=== PATIENT | female | born 1965 | race Two or more races ===

== ENCOUNTER → 2016-06-05 | Outpatient (CLI) | payer BC, OTHER ==
--- NOTE | 2016-06-05 14:03 | US ---
ULTRASOUND EXAMINATION OF the left lower extremity WITH DOPPLER HISTORY: Pain FINDINGS: Examination of the left leg was performed from the groin to the calf region. All visualized segment s including common femoral, proximal greater saphenous, superficial femoral, popliteal and calf vein s appear patent with good compressibility and augmentation. There is no evidence of deep vein throm bosis. IMPRESSION: No evidence of a DVT.
== END ==
LOC: MW.US 12:57
PROVIDERS: ATTEND Family Medicine
DX: R52 Pain, unspecified (principal); R60.9 Edema, unspecified; I82.402 Acute embolism and thrombosis of unspecified deep veins of left lower extremity
CPT/HCPCS: 93971-26-LT; 93971-LT

== ENCOUNTER 2018-03-10 15:26 | Emergency (ER) | payer BC, OTHER ==
[2018-03-10] MEDS ORDERED: Lidocaine 2% Viscous Solution 15 ML Cup PO ONE (15:35)
[2018-03-10] MEDS ORDERED: Benzocaine 20% Topical Spray UD MUCMEM ONE (15:35)
--- NOTE | 2018-03-10 15:41 | EDM.PDOC ---
ED HPI GENERAL MEDICAL PROBLEM - General Chief Complaint: ENT Problem Stated Complaint: ORAL PAIN Time Seen by Provider: 03/10/18 15:29 Source of Information: Reports: Patient History Limitations: Reports: No Limitations - History of Present Illness INITIAL COMMENTS - FREE TEXT/NARRATIVE: HISTORY AND PHYSICAL: History of present illness: Patient is a 53-year-old female who presents to the emergency room with complaints of left low jaw swelling. She states that she was seen by the dentist earlier this week and was placed on clindamycin for a possible abscess. She does not have any teeth along the lower left jaw line #20- #17. She did receive an x-ray at that time and they ruled out an abscess. She continued with the clindamycin but now has increased pain, sensation of some numbness and tingling to that area and swelling along the left low jaw line. She tried to get in with the maxillofacial surgeon who states that they are unable to get in for over a month. She denies any fever, chills, chest pain, shortness of breath or cough. Denies any abdominal pain, nausea, vomiting, diarrhea, constipation or dysuria. She has been able to eat and drink appropriately. Review of systems: As per history of present illness and below otherwise all systems reviewed and negative. Past medical history: As per history of present illness and as reviewed below otherwise noncontributory. Surgical history: As per history of present illness and as reviewed below otherwise noncontributory. Social history: See social history for further information Family history: As per history of present illness and as reviewed below otherwise noncontributory. Physical exam: General: HEENT: Atraumatic, normocephalic, pupils equal and reactive bilaterally, negative for conjunctival pallor or scleral icterus, mucous membranes moist, TMs normal bilaterally, throat clear, neck supple, nontender, trachea midline. No drooling or trismus noted. No meningeal signs. No hot potato voice noted. No temporal tenderness with palpation. No tenderness to the mastiod bone. Lungs: Clear to auscultation, breath sounds equal bilaterally, chest nontender. Heart: S1S2, regular rate and rhythm without overt murmur Abdomen: Soft, nondistended, nontender. Negative for masses or hepatosplenomegaly. Negative for costovertebral tenderness. Pelvis: Stable nontender. Genitourinary: Deferred. Rectal: Deferred. Skin: Intact, warm, dry. No lesions or rashes noted. Extremities: Atraumatic, negative for cords or calf pain. Neurovascular unremarkable. Neuro: Awake, alert, oriented. Cranial nerves II through XII unremarkable. Cerebellum unremarkable. Motor and sensory unremarkable throughout. Exam nonfocal. Notes: Lab work is unremarkable. CT shows Left perimandibular soft tissue edema, nonspecific. No regional fluid collection seen. No tonsillar or peritonsillar collection. Atrophic changes in the bilateral parotid and submandibular glands. Multiple small soft tissue nodules in the bilateral parotids could represent residual glandular tissue. Left maxillary sinus disease with a mucosal retention cyst or polyp. Encourage patient to continue her clindamycin. We'll give her a Medrol Dosepak and tramadol for home use. Would like her to follow-up with her dentist as she already has arranged. We reviewed signs and symptoms that would prompt her to return to the emergency room. Diagnostics: CBC, CMP, soft tissue neck Therapeutics: Toradol Prescription: Medrol Dose Moo Tramadol Impression: Jaw pain Plan: 1. Please continue to take the antibiotic as prescribed. Medrol dosepak as directed 2. Tylenol and/or ibuprofen as needed for pain management. "Tooth Balls" have been given to you; apply along the gumline every 2-3 hours as needed. Do not swallow these; external use only. Tramadol as needed for moderate to severe pain. This medication may cause drowsiness a do not take it while driving or needing to be functioning outside of the house. 3. Follow-up with a dentist for definitive care. Return to the ED as needed and as discussed. Definitive disposition and diagnosis as appropriate pending reevaluation and review of above. Left lower dental Pain Score (Numeric/FACES): 9 - Related Data Allergies Allergy/AdvReac Type Severity Reaction Status Date / Time cephalexin [From Keflex] Allergy Tachycardia Verified 03/10/18 15:44 erythromycin base Allergy Tachycardia Verified 03/10/18 15:44 sulfamethoxazole Allergy Tachycardia Verified 03/10/18 15:44 [From Bactrim] tetracycline Allergy Tachycardia Verified 03/10/18 15:44 trimethoprim [From Bactrim] Allergy Tachycardia Verified 03/10/18 15:44 Home Meds: Home Meds Clindamycin HCl 150 mg PO Q8HR 01/17/19 [History] ED ROS ENT - Review of Systems Review Of Systems: ROS reveals no pertinent complaints other than HPI. ED EXAM, ENT - Physical Exam Exam: See Below (see dictation) Course - Vital Signs Last Recorded V/S: Last Vital Signs Temp 97.1 F 03/10/18 15:44 Pulse 81 03/10/18 15:44 Resp 18 03/10/18 15:44 BP 111/67 03/10/18 15:44 Pulse Ox 94 L 03/10/18 15:44 - Orders/Labs/Meds Orders: Active Orders 24 hr Category Date Time Status Soft Tissue Neck w Cont [CT] Stat Exams 03/10/18 15:47 Ordered Ketorolac [Toradol] Med 03/10/18 17:27 Once 30 mg IVPUSH ONETIME ONE Labs: Laboratory Tests 03/10/18 03/10/18 Range/Units 15:58 15:58 WBC 6.50 (4.0-11.0) K/uL RBC 4.03 L (4.30-5.90) M/uL Hgb 12.6 (12.0-16.0) g/dL Hct 36.9 (36.0-46.0) % MCV 91.6 (80.0-98.0) fL MCH 31.3 (27.0-32.0) pg MCHC 34.1 (31.0-37.0) g/dL RDW Std Deviation 44.2 (28.0-62.0) fl RDW Coeff of Bogdan 13 (11.0-15.0) % Plt Count 257 (150-400) K/uL MPV 9.70 (7.40-12.00) fL Neut % (Auto) 64.6 (48.0-80.0) % Lymph % (Auto) 24.0 (16.0-40.0) % Toole % (Auto) 9.7 (0.0-15.0) % Eos % (Auto) 1.4 (0.0-7.0) % Baso % (Auto) 0.3 (0.0-1.5) % Neut # (Auto) 4.2 (1.4-5.7) K/uL Lymph # (Auto) 1.6 (0.6-2.4) K/uL Toole # (Auto) 0.6 (0.0-0.8) K/uL Eos # (Auto) 0.1 (0.0-0.7) K/uL Baso # (Auto) 0.0 (0.0-0.1) K/uL Nucleated RBC % 0.0 /100WBC Nucleated RBCs # 0 K/uL Sodium 139 (136-145) mmol/L Potassium 4.1 (3.5-5.1) mmol/L Chloride 107 (98-107) mmol/L Carbon Dioxide 23.1 (21.0-32.0) mmol/L BUN 12 (7.0-18.0) mg/dL Creatinine 0.8 (0.6-1.0) mg/dL Est Cr Clr Drug Dosing 80.15 mL/min Estimated GFR (MDRD) > 60.0 ml/min Glucose 108 H (74-106) mg/dL Calcium 9.4 (8.5-10.1) mg/dL Total Bilirubin 0.4 (0.2-1.0) mg/dL AST 31 (15-37) IU/L ALT 43 (14-63) IU/L Alkaline Phosphatase 101 (46-116) U/L Total Protein 8.4 H (6.4-8.2) g/dL Albumin 3.3 L (3.4-5.0) g/dL Globulin 5.1 H (2.6-4.0) g/dL Albumin/Globulin Ratio 0.7 L (0.9-1.6) Meds: Medications Discontinued Medications Generic Name Dose Route Start Last Admin Trade Name Freq PRN Reason Stop Dose Admin Benzocaine 2 each 03/10/18 15:35 03/10/18 16:11 Hurricaine One 20% MUCMEM 03/10/18 15:36 2 each ONETIME ONE Administration Iopamidol 80 ml 03/10/18 16:44 03/10/18 16:45 Isovue Multipack-370 (76%) IVPUSH 03/10/18 16:45 80 ml ONETIME STA Administration Lidocaine HCl 15 ml 03/10/18 15:35 03/10/18 16:11 Xylocaine 2% Viscous PO 03/10/18 15:36 15 ml ONETIME ONE Administration Departure - Departure Time of Disposition: 17:40 Disposition: Home, Self-Care 01 Clinical Impression: Pain in lower jaw - Discharge Information Referrals: PCP,None [Primary Care Provider] - Forms: ED Department Discharge Additional Instructions: The following information is given to patients seen in the emergency department who are being discharged to home. This information is to outline your options for follow-up care. We provide all patients seen in our emergency department with a follow-up referral. The need for follow-up, as well as the timing and circumstances, are variable depending upon the specifics of your emergency department visit. If you don't have a primary care physician on staff, we will provide you with a referral. We always advise you to contact your personal physician following an emergency department visit to inform them of the circumstance of the visit and for follow-up with them and/or the need for any referrals to a consulting specialist. The emergency department will also refer you to a specialist when appropriate. This referral assures that you have the opportunity for follow-up care with a specialist. All of these measure are taken in an effort to provide you with optimal care, which includes your follow-up. Under all circumstances we always encourage you to contact your private physician who remains a resource for coordinating your care. When calling for follow-up care, please make the office aware that this follow-up is from your recent emergency room visit. If for any reason you are refused follow-up, please contact the [facility] Emergency Department at and asked to speak to the emergency department charge nurse. [facility] [address] [place] [id number] [place] [address] 1. Please continue to take the antibiotic as prescribed. Medrol dosepak as directed 2. Tylenol and/or ibuprofen as needed for pain management. "Tooth Balls" have been given to you; apply along the gumline every 2-3 hours as needed. Do not swallow these; external use only. Tramadol as needed for moderate to severe pain. This medication may cause drowsiness a do not take it while driving or needing to be functioning outside of the house. 3. Follow-up with a dentist for definitive care. Return to the ED as needed and as discussed. - My Orders Last 24 Hours: My Active Orders 03/10/18 15:47 Soft Tissue Neck w Cont [CT] Stat 03/10/18 17:27 Ketorolac [Toradol] 30 mg IVPUSH ONETIME ONE - Assessment/Plan Last 24 Hours: My Active Orders 03/10/18 15:47 Soft Tissue Neck w Cont [CT] Stat 03/10/18 17:27 Ketorolac [Toradol] 30 mg IVPUSH ONETIME ONE
[2018-03-10 16:29] LABS: CHLORIDE,CL 107 mmol/L (98-107); SODIUM,NA 139 mmol/L (136-145)
[2018-03-10] MEDS ORDERED: Iopamidol 755 MG/ML 500 ML Multipack Bottle IVPUSH STA (16:44)
[2018-03-10] MEDS ORDERED: Ketorolac 30 MG/ML SDV IVPUSH ONE (17:27)
--- NOTE | 2018-03-10 17:37 | CT ---
INDICATION: Left perimandibular swelling TECHNIQUE: CT soft tissue of the neck was acquired with IV contrast. 80 mL of Isovue 370 administered. COMPARISON: None available FINDINGS: There is left perimandibular subcutaneous edema. No regional loculated fluid collection is seen. The nasopharynx, oropharynx, hypopharynx and larynx are patent. 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 No tonsillar or peritonsillar collection is seen. There is partial atrophy of the bilateral parotid glands which contain multiple small soft tissue nodular densities which could be related to residual glandular tissue, as well as subcentimeter lymph nodes. There is fatty atrophy of the bilateral submandibular glands. There is a focus of ill-defined soft tissue density in the left aspect of the floor of mouth region on image 34 which could represent mild nonspecific focal edema or may be related to partial focal atrophy involving regional musculature. No discrete thyroid abnormality is seen. No abnormally enlarged cervical lymph nodes are seen. There is a left maxillary sinus mucosal retention cyst or polyp and adjacent mucosal thickening, and mild mucosal thickening in the anterior right ethmoid sinus. No suspicious or acute osseous abnormalities are seen. There is a prominent irregular fat attenuation area in the left suboccipital soft tissues compatible with a lipoma. IMPRESSION: Left perimandibular soft tissue edema, nonspecific. No regional fluid collection seen. No tonsillar or peritonsillar collection. Atrophic changes in the bilateral parotid and submandibular glands. Multiple small soft tissue nodules in the bilateral parotids could represent residual glandular tissue. Left maxillary sinus disease with a mucosal retention cyst or polyp. Dictated by Gaston Deal MD @ 03/10/2018 5:35:50 PM Please note that all CT scans at this facility use dose modulation, iterative reconstruction, and/or weight-based dosing when appropriate to reduce radiation dose to as low as reasonably achievable. Dictated by: Gaston Deal MD @ 03/10/2018 17:36:01 (Electronically Signed)
== END 2018-03-10 17:58 | disposition home or self-care (01) ==
LOC: MW.ED 15:26
DX: R68.84 Jaw pain (principal)
CPT/HCPCS: 36415; 70491; 80053; 85025; 96374; 99284; A9270; J1885; Q9967; 99283

== ENCOUNTER 2018-06-20 08:58 | Day surgery (SDC) | payer BC, OTHER ==
[~2018-06-20 08:58] MED LIST: Lactated Ringers 1,000 ML IV SCH
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
[2018-06-20] MEDS ORDERED: Lidocaine 2% 5 ML SDV ONE (10:51)
[2018-06-20] MEDS ORDERED: Midazolam 1 MG/ML 2 ML SDV ONE (10:51)
[2018-06-20] MEDS ORDERED: fentaNYL 100 MCG/2 ML SDV ONE (10:51)
[2018-06-20] MEDS ORDERED: Propofol 200 MG/20 ML SDV ONE ×2 (10:52→11:22)
[2018-06-20] MEDS ORDERED: Lactated Ringers 1,000 ML IV SCH (11:45)
--- NOTE | 2018-06-20 11:45 | PCM.OPNOTE ---
- General Post-Op/Procedure Note Date of Surgery/Procedure: 06/20/18 Operative Procedure(s): Colonoscopy Pre Op Diagnosis: Intermittent rectal bleeding Post-Op Diagnosis: No evidence of neoplasia Anesthesia Technique: MAC (ASA II) Primary Surgeon: Herman iKllian Condition: Good Free Text/Narrative:: DICTATION 424429 CPT CODE 91648
--- NOTE | 2018-06-20 12:34 | PCM48HPAN ---
Post Anesthesia Note - EVALUATION WITHIN 48HRS OF ANESTHETIC Vital Signs in Normal Range: Yes Patient Participated in Evaluation: Yes Respiratory Function Stable: Yes Airway Patent: Yes Cardiovascular Function Stable: Yes Hydration Status Stable: Yes Pain Control Satisfactory: Yes Nausea and Vomiting Control Satisfactory: Yes Mental Status Recovered: Yes Resp Rate: 15 - COMMENTS/OBSERVATIONS Free Text/Narrative:: no anesthesia problems
--- NOTE | 2018-06-22 08:27 | OR ---
SURGEON: Herman Killian M.D. DATE OF PROCEDURE: 06/20/2018 OPERATION PERFORMED: Colonoscopy. ANESTHESIA: MAC. ASA CLASSIFICATION: II. PREOPERATIVE DIAGNOSIS: Intermittent rectal bleeding. POSTOPERATIVE DIAGNOSIS: No evidence of neoplasia. DESCRIPTION OF PROCEDURE: The patient was taken to the endoscopy room and positioned on the endoscopy table in the left lateral decubitus position. Time-out was called for appropriate identification of the patient and procedure. Monitored anesthesia care was provided. The colonoscope was inserted into the rectum and advanced with moderate difficulty to the cecum. The cecum was identified by internal landmarks and external pressure. The colonoscope was retroflexed in the cecum to visualize the ascending colon from below, then straightened and slowly withdrawn. The prep was excellent. The cecum, ascending colon, hepatic flexure, transverse colon, splenic flexure, descending colon, sigmoid colon, and rectum were very well visualized. No tumors, polyps, diverticula, or angiodysplastic changes were noted anywhere in the lower gastrointestinal tract. Once the colonoscope was withdrawn to the rectum, it was retroflexed to visualize the anal orifice from above. Again, no tumors or polyps were seen and there were no acute hemorrhoidal changes. The colonoscope was then straightened, the rectum aspirated, and the colonoscope removed. The patient tolerated the procedure well and was taken to recovery room in satisfactory condition. GABI SPENCE /[id number]
== END 2018-06-20 12:35 | disposition home or self-care (01) ==
LOC: MW.SDS 08:58
PROVIDERS: ATTEND Surgery
DX: K92.1 Melena (principal); J30.9 Allergic rhinitis, unspecified; B35.3 Tinea pedis; Z88.1 Allergy status to other antibiotic agents; Z88.2 Allergy status to sulfonamides; Z91.030 Bee allergy status; Z87.891 Personal history of nicotine dependence
CPT/HCPCS: 45378; J2001; J2250; J2704; J3010; J7120

== ENCOUNTER 2019-07-20 06:53 | Day surgery (SDC) | payer BC, OTHER ==
[~2019-07-20 06:53] MED LIST changes: +Glycopyrrolate 0.2 MG/ML SDV ONE; +Ketorolac 30 MG/ML SDV ONE; +Lidocaine 2% 5 ML SDV ONE; +Midazolam 1 MG/ML 2 ML SDV ONE; +Ondansetron 4 MG/2 ML SDV ONE; +Propofol 200 MG/20 ML SDV ONE; +Rocuronium 100 MG/10 ML Syringe ONE; +Sodium Chloride 0.9% 10 ML SDV IV PRN; +Sodium Chloride 0.9% 10 ML Syringe FLUSH PRN; +Sodium Chloride 0.9% 2.5 ML Syringe FLUSH PRN; +Sugammadex Sodium 200 MG/2 ML VIAL ONE; +fentaNYL 250 MCG/5 ML SDV ONE
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
[2019-07-20] MEDS ORDERED: fentaNYL 100 MCG/2 ML SDV IVPUSH PRN (07:30)
[2019-07-20] MEDS ORDERED: Acetaminophen 1,000 MG in Premix Bag 1 BAG IV PRN (07:30)
[2019-07-20] MEDS ORDERED: Fluorescein 5 ML Vial ONE (08:21)
--- NOTE | 2019-07-20 08:44 | PCM.DCSUM1 ---
Discharge Summary - Hospital Course Diagnosis: Stroke: No - Discharge Data Discharge Date: 07/20/19 Discharge Disposition: Home, Self-Care 01 Condition: Good - Referral to Home Health Primary Care Physician: PCP None - Patient Instructions Diet: Usual Diet as Tolerated Activity: As Tolerated Driving: Do Not Drive Showering/Bathing: May Shower - Discharge Plan Home Medications: Home Meds EPINEPHrine [Epipen 2-Moo] 0.3 mg IM ASDIRECTED PRN 06/16/18 [History] SUMAtriptan [Sumatriptan] 20 mg INH ASDIRECTED PRN MDD 40 mg 06/16/18 [History] Clotrimazole [Antifungal Ringworm] 1 dose TOP BID PRN 07/18/19 [History] Fluticasone Propionate [Flonase Allergy Relief] 1 spray NASBOTH DAILY PRN [History] estradioL [Estradiol] 1 mg PO DAILY 07/20/19 [History] - Discharge Summary/Plan Comment DC Time >30 min.: Yes - General Info Date of Service: 07/20/19 Functional Status: Reports: Pain Controlled - Review of Systems General: Reports: No Symptoms HEENT: Reports: No Symptoms Pulmonary: Reports: No Symptoms Cardiovascular: Reports: No Symptoms Gastrointestinal: Reports: No Symptoms Genitourinary: Reports: No Symptoms Musculoskeletal: Reports: No Symptoms Skin: Reports: No Symptoms Neurological: Reports: No Symptoms Psychiatric: Reports: No Symptoms - Patient Data Vitals - Most Recent: Last Vital Signs Temp 36.0 C L 07/20/19 07:10 Pulse 67 07/20/19 07:10 Resp 16 07/20/19 07:10 BP 113/58 L 07/20/19 07:10 Pulse Ox 96 07/20/19 07:10 Weight - Most Recent: 85.729 kg Med Orders - Current: Current Medications Fentanyl (Sublimaze) 50 mcg IVPUSH Q5M PRN PRN Reason: Pain Lactated Ringer's (Ringers, Lactated) 1,000 mls @ 125 mls/hr IV ASDIRECTED GISELLE Last Admin: 07/20/19 07:43 Dose: 125 mls/hr Acetaminophen 1,000 mg/ Premix 100 mls @ 400 mls/hr IV Q6H PRN PRN Reason: Pain Sodium Chloride (Saline Flush) 10 ml FLUSH ASDIRECTED PRN PRN Reason: Keep Vein Open Sodium Chloride (Saline Flush) 2.5 ml FLUSH ASDIRECTED PRN PRN Reason: Keep Vein Open Sodium Chloride (Normal Saline) 10 ml IV ASDIRECTED PRN PRN Reason: IV Use Discontinued Medications Fentanyl (Sublimaze) Confirm Administered Dose 250 mcg .ROUTE .STK-MED ONE Stop: 07/20/19 06:48 Fluorescein Sodium (Ak-Fluor) Confirm Administered Dose 5 ml .ROUTE .STK-MED ONE Stop: 07/20/19 08:22 Glycopyrrolate (Robinul) Confirm Administered Dose 0.2 mg .ROUTE .STK-MED ONE Stop: 07/20/19 06:50 Ketorolac Tromethamine (Toradol) Confirm Administered Dose 30 mg .ROUTE .STK- MED ONE Stop: 07/20/19 06:50 Lidocaine (Xylocaine-Mpf 2%) Confirm Administered Dose 5 ml .ROUTE .STK-MED ONE Stop: 07/20/19 06:50 Midazolam HCl (Versed 1 Mg/Ml) Confirm Administered Dose 2 mg .ROUTE .STK-MED ONE Stop: 07/20/19 06:48 Ondansetron HCl (Zofran) Confirm Administered Dose 4 mg .ROUTE .STK-MED ONE Stop: 07/20/19 06:50 Propofol (Diprivan 20 Ml) Confirm Administered Dose 200 mg .ROUTE .STK-MED ONE Stop: 07/20/19 06:48 Rocuronium [place] (Zemuron) Confirm Administered Dose 100 mg .ROUTE .STK-MED ONE Stop: 07/20/19 06:50 Sugammadex Sodium ([place]) Confirm Administered Dose 200 mg .ROUTE .STK-MED ONE Stop: 07/20/19 06:47 - Exam General: Reports: Alert, Oriented HEENT: Reports: Pupils Equal, Pupils Reactive, EOMI, Mucous Membr. Moist/[place] Neck: Reports: Supple Lungs: Reports: Clear to Auscultation, Normal Respiratory Effort Cardiovascular: Reports: Regular Rate, Regular Rhythm GI/Abdominal Exam: Normal Bowel Sounds, Soft, Non-Tender, No Organomegaly, No Distention, No Abnormal Bruit, No Mass, Pelvis Stable (Female) Exam: Normal External Exam, Normal Speculum Exam, Normal Bimanual Exam Rectal (Female) Exam: Normal Exam, Normal Rectal Tone Back Exam: Reports: Normal Inspection, Full Range of Motion Extremities: Normal Inspection, Normal Range of Motion, Non-Tender, No Pedal Edema, Normal Capillary Refill Skin: Reports: Warm, Dry, Intact Wound/Incisions: Reports: Healing Well Neurological: Reports: No New Focal Deficit Psy/Mental Status: Reports: Alert, Normal Affect, Normal Mood
--- NOTE | 2019-07-20 09:06 | PCM.POSTAN ---
POST ANESTHESIA ASSESSMENT - MENTAL STATUS Mental Status: Alert, Oriented - VITAL SIGNS Vital Signs: Last Vital Signs Temp 36.2 C 07/20/19 08:46 Pulse 82 07/20/19 09:02 Resp 14 07/20/19 09:02 BP 110/64 07/20/19 09:02 Pulse Ox 96 07/20/19 09:02 - RESPIRATORY Respiratory Status: Respiratory Rate WNL, Airway Patent, O2 Saturation Stable - CARDIOVASCULAR CV Status: Pulse Rate WNL, Blood Pressure Stable - GASTROINTESTINAL GI Status: No Symptoms - PAIN Pain Score: 2 - POST OP HYDRATION Hydration Status: Adequate & Stable - OBSERVATIONS Free Text/Narrative:: No anesthesia problems
--- NOTE | 2019-07-20 10:24 | PCM48HPAN ---
Post Anesthesia Note - EVALUATION WITHIN 48HRS OF ANESTHETIC Vital Signs in Normal Range: Yes Patient Participated in Evaluation: Yes Respiratory Function Stable: Yes Airway Patent: Yes Cardiovascular Function Stable: Yes Hydration Status Stable: Yes Pain Control Satisfactory: Yes Nausea and Vomiting Control Satisfactory: Yes Mental Status Recovered: Yes Vital Signs: Last Vital Signs Temp 36.2 C 07/20/19 08:46 Pulse 82 07/20/19 09:02 Resp 14 07/20/19 09:02 BP 110/64 07/20/19 09:02 Pulse Ox 96 07/20/19 09:02 - COMMENTS/OBSERVATIONS Free Text/Narrative:: No anesthesia problems.
[2019-07-20] MEDS ORDERED: Acetaminophen/HYDROcodone 325-5 MG Tab PO ONE (10:51)
--- NOTE | 2019-07-20 12:38 | OR ---
SURGEON: Alfonso Mccarty MD DATE OF PROCEDURE: 07/20/2019 PREOPERATIVE DIAGNOSIS: Stress urinary incontinence. POSTOPERATIVE DIAGNOSIS: Stress urinary incontinence. OPERATION PERFORMED: Tension free Solyx TVT cystoscopy. PRIMARY SURGEON: Alfonso Mccarty MD. DRY CHAIN PULLER: OR tech. ANESTHESIA: General endotracheal intubation, Gary Conor Man and Dr. Gavin. ESTIMATED BLOOD LOSS: Less than 50 mL. COMPLICATIONS: None. FINDINGS: Stress urinary incontinence. INDICATION TO SURGERY: Benedict, referred to the admit note. PROCEDURE IN DETAIL: The patient was brought to the OR and properly identified. After adequate level of anesthesia, the patient placed in the lithotomy position, prepped and draped in the sterile fashion as usual. A weighted speculum was placed in the vagina and straight catheter was used to empty the bladder, and an inch and a half of the anterior vaginal wall beneath the umbilicus was infiltrated with copious amount of normal saline; and using electrocautery, a midline incision was done and then the vaginal mucosa was dissected laterally on both side in a tunneling fashion until the file machine operator could feel the pubic rami on both sides. Solyx TVT was placed behind the pubic rami on both sides to elevate urethrovesical angle without any tension. Once that was placed in place, the then we proceeded to close the vaginal cuff with 2-0 Vicryl continuous interlocking suture for hemostasis. While we were doing the procedure, we asked the Anesthesia to give the patient fluorescein and then cystoscopy was performed. The bladder was intact. Both ureters and ureteric orifice were seen. Thus, the patency and integrity of the ureter and the bladder was verified. Once that was done, the bladder was emptied and the procedure ended. Instrument and sponge count was correct. The patient tolerated the procedure well and went to recovery room in stable general condition. JULES / BEBE /[id number]
== END 2019-07-20 11:07 | disposition home or self-care (01) ==
LOC: MW.SDS 06:53
PROVIDERS: ATTEND Obstetrics & Gynecology
DX: N39.3 Stress incontinence (female) (male) (principal); F41.9 Anxiety disorder, unspecified; Z88.1 Allergy status to other antibiotic agents; Z91.030 Bee allergy status; Z88.2 Allergy status to sulfonamides; Z88.8 Allergy status to other drugs, medicaments and biological substances; Z79.899 Other long term (current) drug therapy; Z87.891 Personal history of nicotine dependence
CPT/HCPCS: 57288; A9270; C1771; J1885; J2001; J2250; J2405; J2704; J3010; J3490; J7120; 00860

== ENCOUNTER 2024-01-06 11:24 | Day surgery (SDC) | payer BC, OTHER ==
[2024-01-06] MEDS: Lactated Ringers 1,000 ML IV SCH (12:25)
[2024-01-06] MEDS ORDERED: Propofol 200 MG/20 ML SDV ONE (13:49)
== END 2024-01-06 15:10 | disposition home or self-care (01) ==
LOC: MW.SDS 11:24
PROVIDERS: ATTEND Surgery
DX: K57.30 Diverticulosis of large intestine without perforation or abscess without bleeding (principal); F41.9 Anxiety disorder, unspecified; Z87.891 Personal history of nicotine dependence; Z79.899 Other long term (current) drug therapy; Z91.030 Bee allergy status; Z88.1 Allergy status to other antibiotic agents; Z88.8 Allergy status to other drugs, medicaments and biological substances
CPT/HCPCS: 45378; J2704; J7120